=== PATIENT | female | born 1960 | race Caucasian/White ===

== ENCOUNTER 2022-03-26 22:04 | Emergency (ER) | payer OTHER ==
[~2022-03-26] VITALS: Ht 165.1 cm; Wt 86.2 kg
[2022-03-26] MEDS ORDERED: LEVO25TA9 PO (22:37)
--- NOTE | 2022-03-26 22:45 | NUR ---
pt came in for dog bite to the right fore arm.
[2022-03-27] MEDS ORDERED: CEFAZOLIN 1 G VIAL IM ONE (00:45)
[2022-03-27] MEDS ORDERED: LIDOCAINE 1%-EPI 1:100,000 20 ML VIAL IJ ONE (00:45)
[2022-03-27] MEDS ORDERED: LIDOCAINE 1%-EPI 1:100,000 20 ML VIAL ONE ×2 (01:36→04:09)
[2022-03-27] MEDS ORDERED: CEFAZOLIN 1 G VIAL ONE (01:51)
[2022-03-27] MEDS ORDERED: AMOX-430 PO (05:32)
[2022-03-27] MEDS ORDERED: BACITRACIN ZINC OINT 15 GM TUBE TOP ONE (06:15)
[2022-03-27] MEDS ORDERED: AMOXICILLIN-CLAVUL 875-125MG TABLET PO ONE (06:15)
[2022-03-27] MEDS ORDERED: BACITRACIN ZINC OINT 15 GM TUBE ONE (06:17)
[2022-03-27] MEDS ORDERED: AMOXICILLIN-CLAVUL 875-125MG TABLET ONE (06:17)
--- NOTE | 2022-03-27 06:35 | NUR ---
Patient discharged to home in stable condition. Written and verbal after care instructions given. Patient verbalizes understanding of instructions. Stressed follow up or return to ER for worsening s/s.
[2022-03-27 06:37] VITALS: BP 140/80
== END 2022-03-27 06:38 | disposition home or self-care (01) ==
LOC: ER 22:06
DX: S51.811A Laceration without foreign body of right forearm, initial encounter (principal); S51.831A Puncture wound without foreign body of right forearm, initial encounter; W54.0XXA Bitten by dog, initial encounter; Y92.019 Unspecified place in single-family (private) house as the place of occurrence of the external cause
CPT/HCPCS: 12034; 96372; 99284; J0690; J3490 ×2

== ENCOUNTER 2022-03-29 17:15 | Emergency (ER) | payer OTHER ==
[~2022-03-29] VITALS: Ht 165.1 cm; Wt 86.2 kg
[~2022-03-29 17:15] MED LIST: AMOX-430 PO; LEVO25TA9 PO
--- NOTE | 2022-03-29 19:27 | NUR ---
Patient discharged to home in stable condition. Written and verbal after care instructions given. Patient verbalizes understanding of instructions. Stressed follow up or return to ER for worsening s/s. Patient out of ER with steady gait, no acute signs of distress, VSS, all belongings taken.
[2022-03-29 19:28] VITALS: BP 148/92
== END 2022-03-29 19:28 | disposition home or self-care (01) ==
LOC: ER 17:15
DX: S51.811D Laceration without foreign body of right forearm, subsequent encounter (principal); S51.831D Puncture wound without foreign body of right forearm, subsequent encounter; W54.0XXD Bitten by dog, subsequent encounter
CPT/HCPCS: A4663